=== PATIENT | female | born 1960 | race Caucasian/White ===

== ENCOUNTER 2024-05-30 16:33 | Emergency (ER) | payer MEDICAID ==
[~2024-05-30] VITALS: Ht 152.4 cm; Wt 65.0 kg
[2024-05-30 16:55] VITALS: BP 128/63; PULSE 72; RESP 20; TEMP 98.1; O2SAT 96
== END 2024-05-30 19:24 | disposition home or self-care (01) ==
LOC: ER 16:34
DX: R60.0 Localized edema (principal); Z91.041 Radiographic dye allergy status; Z88.1 Allergy status to other antibiotic agents; Z91.040 Latex allergy status; Z88.5 Allergy status to narcotic agent; Z88.8 Allergy status to other drugs, medicaments and biological substances
CPT/HCPCS: 93970; 99284